=== PATIENT | male | born 1995 | race Caucasian/White ===

== ENCOUNTER 2022-11-02 10:29 | Emergency (ER) | payer BC ==
[~2022-11-02] VITALS: Ht 165.1 cm; Wt 68.0 kg
--- NOTE | 2022-11-02 10:41 | NUR ---
seen and examined by MD Levine
[2022-11-02] MEDS ORDERED: TDAP DIPH,PERTUSS,TET VAC/PF 0.5 ML DISP.SYRIN IM ONE ×2 (10:45→10:50)
[2022-11-02 11:03] VITALS: BP 120/76
--- NOTE | 2022-11-02 11:03 | NUR ---
Patient discharged to home in stable condition. Written and verbal after care instructions given. Patient verbalizes understanding of instructions. Stressed follow up or return to ER for worsening s/s.
== END 2022-11-02 11:12 | disposition home or self-care (01) ==
LOC: ER 10:29
DX: S41.012A Laceration without foreign body of left shoulder, initial encounter (principal); W18.39XA Other fall on same level, initial encounter; Y93.89 Activity, other specified; Y92.89 Other specified places as the place of occurrence of the external cause; Y99.8 Other external cause status
CPT/HCPCS: 90715; A4663